=== PATIENT | female | born 1935 | race Caucasian/White ===

== ENCOUNTER 2017-05-01 23:00 | Emergency (ER) | payer MEDICARE ==
[~2017-05-01] VITALS: Ht 165.1 cm; Wt 106.3 kg
[2017-05-01 23:42] LABS: HEMATOCRIT 37.3 % (36.0-46.0); MCH 29.2 PG (29.0-34.0); MCHC 34.6 G/DL (30.0-36.0); MCV 84.4 FL (83-99); MEAN PLAT.VOLUME 9.8 uM^3 (9.5-12.4); PLATELET COUNT 179 K/uL (156-360); RBC DIS.WIDTH-CV 13.5 % (11.8-14.6); RBC DIS.WIDTH-SD 41.6 % (39-53); RED BLOOD COUNT 4.42 M/uL (3.80-5.20); WHITE BLOOD COUNT 8.2 K/uL (4.1-10.2)
[2017-05-01 23:49] LABS: INTER. NORMALIZED RATIO 1.1; PROTHROMBIN TIME 12.1 SEC (10.2-12.9)
[2017-05-01 23:53] LABS: CHLORIDE 112 mEq/L (99-109); POTASSIUM 3.9 mEq/L (3.7-5.4); SODIUM 140 mEq/L (136-147)
[2017-05-01 23:55] LABS: GLUCOSE 109 mg/dL (70-99)
[2017-05-01 23:56] LABS: ANION GAP 4 MEQ/L (2-14)
[2017-05-01 23:57] LABS: TOTAL BILIRUBIN 2.9 mg/dL (0.0-1.0)
[2017-05-01 23:59] LABS: ALKALINE PHOSPHATASE 105 IU/L (3-129); GFR ESTIMATE (CALCULATED) 42 mL/min/
[2017-05-02] LABS: UREA NITROGEN (BUN) 26 mg/dL (9-23)
[2017-05-02 00:02] LABS: LIPASE 27 U/L (1.0-51.0); URIC ACID 5.7 mg/dL (3.1-9.2)
[2017-05-02 00:32] LABS: TROP-I INTERPRETATION NEGATIVE; TROPONIN-I 0.01 ng/mL (0.0-0.30)
[2017-05-02 00:36] LABS: CREATINE KINASE 21 IU/L (1-294)
[2017-05-02 01:47] LABS: ADD MIUA? NO; BILIRUBIN NEGATIVE; BLOOD NEGATIVE; COLOR YELLOW ((YELLOW)); GLUCOSE (STRIP) NEGATIVE; KETONES NEGATIVE; LEUKOCYTES NEGATIVE; NITRITE NEGATIVE; PROTEIN (STRIP) 30; SPECIFIC GRAVITY 1.015 (1.000-1.030); UCUL ADDED? NO
[2017-05-02] MEDS ORDERED: APRESOLINE10 MG PO (02:47)
[2017-05-02 03:06] VITALS: BP 168/87
[2017-05-02] MEDS ORDERED: ATENOLOL25 MG PO (03:06)
== END 2017-05-02 03:12 | disposition home or self-care (01) ==
LOC: EDBD 23:00 → EME 23:00
PROVIDERS: Emergency Medicine
DX: I10 Essential (primary) hypertension (principal); M79.89 Other specified soft tissue disorders; M79.604 Pain in right leg; E86.0 Dehydration; I25.2 Old myocardial infarction; Z79.82 Long term (current) use of aspirin; Z87.891 Personal history of nicotine dependence
CPT/HCPCS: 71020; 80053; 81003; 82550; 83690; 84484; 84550; 85027; 85610; 85730; 93005; 93971; 99281; 99284